=== PATIENT | female | born 1975 | race African-American/Black ===

== ENCOUNTER 2016-06-09 21:23 | Emergency (ER) | payer OTHER ==
[~2016-06-09] VITALS: Ht 160 cm; Wt 59.0 kg
[2016-06-09] MEDS ORDERED: BENZTROPINE MES1 MG PO (22:12)
[2016-06-09] MEDS ORDERED: TRAZODONE HCL100 MG PO (22:12)
[2016-06-09 22:15] LABS: ABSOLUTE NEUTROPHILS 4.2 thou/uL (1.4-8.2); BASOPHILS 1.1 % (0.0-2.0); EOSINOPHILS 1.2 % (0.0-3.0); HEMATOCRIT 39.8 % (37.0-47.0); HEMOGLOBIN 13.6 gm/dL (12.0-15.0); LYMPHOCYTES 24.9 % (24.0-44.0); MCH 28.9 pg (26.0-34.0); MCHC 34.2 % (28.0-37.0); MCV 84.6 fL (80.0-100.0); MONOCYTES 10.9 % (1.0-8.0); PLATELET COUNT 295 thou/uL (150-400); POLYS 61.9 % (36.0-66.0); RDW 12.9 % (10.5-14.5); WBC 6.8 thou/uL (4.0-11.0)
[2016-06-09 22:16] LABS: MANUAL DIFF NO
[2016-06-09 22:23] LABS: ANION GAP 13 mmol/L (7-16); BUN 11 mg/dL (7-18); CALCIUM 9.4 mg/dL (8.5-10.1); CHLORIDE 100 mmol/L (98-107); CO2 28 mmol/L (21-32); CREATININE 1.1 mg/dL (0.6-1.3); GLUCOSE 87 mg/dL (70-99); POTASSIUM 3.5 mmol/L (3.5-5.1); SODIUM 141 mmol/L (136-145)
[2016-06-09 22:26] LABS: AMP/METHAMP Negative (Negative); BARBITURATES Negative (Negative); BENZODIAZEPINES Negative (Negative); COCAINE Negative (Negative); METHADONE Negative (Negative); OPIATES Negative (Negative); PCP Negative (Negative); THC Negative (Negative)
[2016-06-09 22:29] LABS: ALBUMIN 4.4 g/dL (3.4-5.0); ALKALINE PHOSPHATASE 56 U/L (46-116); DIRECT BILIRUBIN 0.3 mg/dL (<0.1-0.3); SALICYLATE < 2.8 mg/dL (2.8-20.0); SGOT 109 U/L (15-37); SGPT 36 U/L (30-65); TOTAL BILIRUBIN 1.1 mg/dL (<0.1-1.0); TOTAL PROTEIN 7.9 g/dL (6.4-8.2)
[2016-06-09 22:45] LABS: ACETAMINOPHEN < 2 ug/mL (10-30)
[2016-06-10 04:06] VITALS: BP 125/70
== END 2016-06-10 04:08 ==
LOC: ER 21:23
PROVIDERS: Emergency Medicine
DX: R41.82 Altered mental status, unspecified (principal)

== ENCOUNTER 2020-04-04 09:58 | Emergency (ER) | payer OTHER ==
[~2020-04-04] VITALS: Ht 157.5 cm; Wt 81.7 kg
[~2020-04-04 09:58] MED LIST: BENZTROPINE MES1 MG PO; TRAZODONE HCL100 MG PO
[2020-04-04 11:31] LABS: ABSOLUTE NEUTROPHILS 4.9 thou/uL (1.4-8.2); BASOPHILS 0.9 % (0.0-2.0); EOSINOPHILS 1.2 % (0.0-3.0); HEMATOCRIT 33.1 % (37.0-47.0); LYMPHOCYTES 13.1 % (24.0-44.0); MCH 25.4 pg (26.0-34.0); MCHC 33.1 g/dL (28.0-37.0); MCV 76.8 fL (80.0-100.0); MONOCYTES 9.9 % (1.0-8.0); PLATELET COUNT 393 thou/uL (150-400); POLYS 74.9 % (36.0-66.0); RBC 4.32 mil/uL (4.20-5.00); RDW 16.6 % (10.5-14.5); WBC 6.6 thou/uL (4.0-11.0)
[2020-04-04 11:32] LABS: URINE BILIRUBIN NEGATIVE (Negative); URINE BLOOD TRACE (Negative); URINE CLARITY CLEAR; URINE COLOR YELLOW; URINE GLUCOSE-RANDOM* NEGATIVE (Negative); URINE KETONES NEGATIVE (Negative); URINE LEUKOCYTES-REFLEX TRACE (Negative); URINE NITRITE-REFLEX NEGATIVE (Negative); URINE PROTEIN (DIPSTICK) NEGATIVE (Negative); URINE SPECIFIC GRAVITY <= 1.005 (1.005-1.035); URINE UROBILINOGEN 0.2 E.U./dl (0.2-1.0)
[2020-04-04 11:41] LABS: ANION GAP 11 mmol/L (7-16); BUN 8 mg/dL (7-18); CALCIUM 8.5 mg/dL (8.5-10.1); CHLORIDE 105 mmol/L (98-107); CO2 26 mmol/L (21-32); CREATININE 1.1 mg/dL (0.6-1.0); GLUCOSE 104 mg/dL (74-106); POTASSIUM 3.6 mmol/L (3.5-5.1); SODIUM 142 mmol/L (136-145)
[2020-04-04 11:42] LABS: AMP/METHAMP Negative (Negative); BARBITURATES Negative (Negative); BENZODIAZEPINES Negative (Negative); COCAINE Negative (Negative); METHADONE Negative (Negative); OPIATES Negative (Negative); PCP Negative (Negative)
[2020-04-04 11:47] LABS: ALBUMIN 3.6 g/dL (3.4-5.0); SALICYLATE < 2.8 mg/dL (2.8-20.0); SGOT 25 U/L (15-37); SGPT 19 U/L (30-65); TOTAL BILIRUBIN 0.2 mg/dL (0.2-1.0); TOTAL PROTEIN 6.9 g/dL (6.4-8.2)
[2020-04-04 14:23] VITALS: BP 143/79
== END 2020-04-04 14:23 | disposition home or self-care (01) ==
LOC: ER 09:58
PROVIDERS: Emergency Medicine
DX: F30.9 Manic episode, unspecified (principal); Z59.0 Homelessness; D50.9 Iron deficiency anemia, unspecified; F20.9 Schizophrenia, unspecified; E66.9 Obesity, unspecified; Z79.899 Other long term (current) drug therapy; Z68.32 Body mass index [BMI] 32.0-32.9, adult